=== PATIENT | male | born 1970 | race Caucasian/White ===

== ENCOUNTER 2017-10-31 06:51 | Day surgery (SDC) | payer BC ==
[2017-10-31] MEDS ORDERED: Lactated Ringers 1,000 ML IV SCH (07:00)
[2017-10-31] MEDS ORDERED: Propofol 200 MG/20 ML SDV IV ONE (07:45)
[2017-10-31] MEDS ORDERED: Midazolam 1 MG/ML 2 ML SDV IV ONE (07:45)
[2017-10-31] MEDS ORDERED: Simethicone Drops 40 MG/0.6 ML 30 ML Bottle ONE (08:05)
--- NOTE | 2017-10-31 08:16 | PCM.OPNOTE ---
- General Post-Op/Procedure Note Date of Surgery/Procedure: 10/31/17 Operative Procedure(s): c scope Findings: internal hemorrhoids Pre Op Diagnosis: hematochazia Post-Op Diagnosis: int hemorrhoids Anesthesia Technique: MAC Primary Surgeon: Kendell Frausto Anesthesia Provider: Ayde Gordon Pathology: none Complications: None Condition: Good Free Text/Narrative:: see dictation
--- NOTE | 2017-10-31 14:12 | OR ---
DATE OF OPERATION: 10/31/2017 SURGEON: Kendell Frausto MD PROCEDURE PERFORMED: Colonoscopy. PREOPERATIVE DIAGNOSIS: Hematochezia. POSTOPERATIVE DIAGNOSIS: Internal hemorrhoids. INDICATIONS FOR PROCEDURE: This is a 47-year-old white male who is referred with a history of intermittent bleeding per rectum. He was offered and accepted colonoscopy. DESCRIPTION OF OPERATION: After an excellent IV sedation was administered, digital rectal exam was performed. No marked abnormality was noted. Flexible colonoscope was inserted and advanced to the cecum without difficulty. The prep was excellent. The following findings were noted: Ascending colon, unremarkable. Transverse colon, unremarkable. Descending colon, unremarkable. Sigmoid and rectum unremarkable. On retroflexing the scope, there was some evidence of internal hemorrhoids which appears to be the source of his bleeding. The scope was removed. It should be noted that during the procedure while on the monitor, the patient was noted to have what appears to be a previously unknown bundle branch block with a split in his QRS complex. We will be obtaining an EKG in the postoperative period. /[id number] /MODL
== END 2017-10-31 09:06 | disposition home or self-care (01) ==
LOC: FB.SDS 06:51
PROVIDERS: ATTEND Surgery
DX: K64.8 Other hemorrhoids (principal); E66.9 Obesity, unspecified; Z68.31 Body mass index [BMI] 31.0-31.9, adult; Z87.891 Personal history of nicotine dependence
CPT/HCPCS: 93005; A9270-GY; J2250; J2704; J7120